=== PATIENT | female | born 1995 | race American Indian/Alaskan Native ===

== ENCOUNTER 2019-11-30 02:34 | Emergency (ER) | payer SELFPAY ==
[2019-11-30 03:19] LABS: Hematocrit 40.6 % (30.3-42.9); Hemoglobin 13.5 gm/dl (10.1-14.3); Mean Corpuscular HGB Conc 33 % (30-34); Mean Corpuscular Volume 86 fl (79-97); Platelet Count 255 K/mm3 (140-440); Red Blood Count 4.74 M/mm3 (3.65-5.03)
[2019-11-30 03:33] LABS: Bacteria,Urine 1+ /HPF (Negative); Bilirubin,Urine NEG (Negative); Blood,Urine NEG (Negative); Color,Urine Yellow (Yellow); Mucus,Urine 2+ /HPF; Protein,Urine <15 mg/dL mg/dL (Negative); Urobilinogen,Urine < 2.0 mg/dL (<2.0)
--- NOTE | 2019-11-30 04:03 | Ultrasound Report ---
US OB <= 14 weeks fetus INDICATION / CLINICAL INFORMATION: 10 week with vaginal bleeding. COMPARISON: None available. FINDINGS: Single gestational sac is demonstrated in the uterus, slightly in the lower uterine segment. Gestatio nal sac diameter measures 16.5 mm, corresponding to a gestational age of 6 weeks 4 days. However, no pole can be identified. Both ovaries are normal. No free fluid. IMPRESSION: 1. Intrauterine gestational sac, with no pole. Anembryonic is suspected. Suggest foll ow-up. Signer Name: Tom Bravo MD Signed: 11/30/2019 3:58 AM Workstation Name: [id number]
[2019-11-30 06:11] LABS: Anisocytosis 1+; Band Neutrophils # (Manual) 0.2 K/mm3; Basophils % (Manual) 0 % (0.0-1.8); Platelet Estimate Consistent w Auto; Total Cells Counted 100
--- NOTE | 2019-11-30 06:29 | Emergency Department Report ---
ED HPI - General Chief complaint: Vaginal Bleeding Stated complaint: 10 WEEKS PREGNANET, BLEEDING Time Seen by Provider: 11/30/19 06:14 Source: patient Mode of arrival: Ambulatory Limitations: No Limitations - History of Present Illness Initial comments: 24-year-old female presents with LMP 09/15 (10wk 6days gestation by dates) presents to the hospital complaining of noticing blood from vagina after using the bathroom this a.m. No recent intercourse reported. Patient does not have any continued bleeding or cramping. This is her third with history 2 abortions in the past. She has not yet initiated care and plan to call today and make an appointment. - Related Data Allergies Allergy/AdvReac Type Severity Reaction Status Date / Time No Known Allergies Allergy Unverified 11/30/19 02:40 ED Review of Systems ROS: Stated complaint: 10 WEEKS PREGNANET, BLEEDING Other details as noted in HPI Comment: All other systems reviewed and negative ED Past Medical Hx - Past Medical History Previous Medical History?: No - Surgical History Past Surgical History?: No - Social History Smoking Status: Never Smoker Substance Use Type: None ED Physical Exam - General Limitations: No Limitations - Other Other exam information: General: No acute distress Head: Atraumatic Eyes: normal appearance ENT: Moist mucous membranes Neck: Normal appearance, no midline tenderness Chest: Clear to auscultation bilaterally CV: Regular rate and rhythm Abdomen: Soft, normal bowel sounds, nontender, nondistended, no rebound or gua rding Back: Normal inspection Extremity: Normal inspection, full range of motion Neuro: Alert O x 3, no facial asymmetry, speech clear, no gross motor sensory deficit Psych: Appropriate behavior Skin: No rash ED Course Vital Signs 11/30/19 11/30/19 02:37 06:25 Temperature 98.7 F 98.5 F Pulse Rate 103 H 95 H Respiratory 14 18 Rate Blood Pressure 122/79 Blood Pressure 106/72 [Left] O2 Sat by Pulse 100 100 Oximetry ED Medical Decision Making - Lab Data Result diagrams: 11/30/19 02:50 Lab Results 11/30/19 11/30/19 11/30/19 Range/Units 02:50 02:50 02:50 WBC 6.2 (4.5-11.0) K/mm3 RBC 4.74 (3.65-5.03) M/mm3 Hgb 13.5 (10.1-14.3) gm/dl Hct 40.6 (30.3-42.9) % MCV 86 (79-97) fl MCH 29 (28-32) pg MCHC 33 (30-34) % RDW 14.0 (13.2-15.2) % Plt Count 255 (140-440) K/mm3 [place] % (Auto) Sisal Operator Add Manual Diff Complete Total Counted 100 Seg Neuts % (Manual) 60.0 (40.0-70.0) % Band Neutrophils % 3.0 % Lymphocytes % (Manual) 25.0 (13.4-35.0) % Reactive Lymphs % (Man) 0 % Monocytes % (Manual) 10.0 H (0.0-7.3) % Eosinophils % (Manual) 2.0 (0.0-4.3) % Basophils % (Manual) 0 (0.0-1.8) % Metamyelocytes % 0 % Myelocytes % 0 % Promyelocytes % 0 % Blast Cells % 0 % Nucleated RBC % Not Reportable Seg Neutrophils # Man 3.7 (1.8-7.7) K/mm3 Band Neutrophils # 0.2 K/mm3 Lymphocytes # (Manual) 1.6 (1.2-5.4) K/mm3 Abs React Lymphs (Man) 0.0 K/mm3 Monocytes # (Manual) 0.6 (0.0-0.8) K/mm3 Eosinophils # (Manual) 0.1 (0.0-0.4) K/mm3 Basophils # (Manual) 0.0 (0.0-0.1) K/mm3 Metamyelocytes # 0.0 K/mm3 Myelocytes # 0.0 K/mm3 Promyelocytes # 0.0 K/mm3 Blast Cells # 0.0 K/mm3 WBC Morphology Not Reportable Hypersegmented Neuts Not Reportable Hyposegmented Neuts Not Reportable Hypogranular Neuts Not Reportable Smudge Cells Not Reportable Toxic Granulation Not Reportable Toxic Vacuolation Not Reportable Dohle Bodies Not Reportable Pelger-Huet Anomaly Not Reportable Yoana Rods Not Reportable Platelet Estimate Consistent w auto Clumped Platelets Not Reportable Plt Clumps, EDTA Not Reportable Large Platelets Not Reportable Giant Platelets Not Reportable Platelet Satelliting Not Reportable Plt Morphology Comment Not Reportable RBC Morphology Not Reportable Dimorphic RBCs Not Reportable Polychromasia Not Reportable Hypochromasia Not Reportable Poikilocytosis Not Reportable Anisocytosis 1+ Microcytosis Not Reportable Macrocytosis Not Reportable Spherocytes Not Reportable Pappenheimer Bodies Not Reportable Sickle Cells Not Reportable Target Cells Not Reportable Tear Drop Cells Not Reportable Ovalocytes Not Reportable Helmet Cells Not Reportable [place] Bodies Not Reportable Lyons Rings Not Reportable [place]evely Cells Not Reportable Bite Cells Not Reportable Crenated Cell Not Reportable Elliptocytes Not Reportable Acanthocytes (Spur) Not Reportable Rouleaux Not Reportable Hemoglobin C Crystals Not Reportable Schistocytes Not Reportable Malaria parasites Not Reportable Brannon Bodies Not Reportable Hem Pathologist Commnt No HCG, Quant 24470 H (0-4) mIU/mL Urine Color (Yellow) Urine Turbidity (Clear) Urine pH (5.0-7.0) Ur Specific [place] (1.003-1.030) Urine Protein (Negative) mg/dL Urine Glucose (UA) (Negative) mg/dL Urine Ketones (Negative) mg/dL Urine Blood (Negative) Urine Nitrite (Negative) Urine Bilirubin (Negative) Urine Urobilinogen (<2.0) mg/dL Ur Leukocyte Esterase (Negative) Urine WBC (Auto) (0.0-6.0) /HPF Urine RBC (Auto) (0.0-6.0) /HPF U Epithel Cells (Auto) (0-13.0) /HPF Urine Bacteria (Auto) (Negative) /HPF Urine Mucus /HPF Blood Type O POSITIVE 11/30/19 Range/Units 03:07 WBC (4.5-11.0) K/mm3 RBC (3.65-5.03) M/mm3 Hgb (10.1-14.3) gm/dl Hct (30.3-42.9) % MCV (79-97) fl MCH (28-32) pg MCHC (30-34) % RDW (13.2-15.2) % Plt Count (140-440) K/mm3 [place] % (Auto) Add Manual Diff Total Counted Seg Neuts % (Manual) (40.0-70.0) % Band Neutrophils % % Lymphocytes % (Manual) (13.4-35.0) % Reactive Lymphs % (Man) % Monocytes % (Manual) (0.0-7.3) % Eosinophils % (Manual) (0.0-4.3) % Basophils % (Manual) (0.0-1.8) % Metamyelocytes % % Myelocytes % % Promyelocytes % % Blast Cells % % Nucleated RBC % Seg Neutrophils # Man (1.8-7.7) K/mm3 Band Neutrophils # K/mm3 Lymphocytes # (Manual) (1.2-5.4) K/mm3 Abs React Lymphs (Man) K/mm3 Monocytes # (Manual) (0.0-0.8) K/mm3 Eosinophils # (Manual) (0.0-0.4) K/mm3 Basophils # (Manual) (0.0-0.1) K/mm3 Metamyelocytes # K/mm3 Myelocytes # K/mm3 Promyelocytes # K/mm3 Blast Cells # K/mm3 WBC Morphology Hypersegmented Neuts Hyposegmented Neuts Hypogranular Neuts Smudge Cells Toxic Granulation Toxic Vacuolation Dohle Bodies Pelger-Huet Anomaly Yoana Rods Platelet Estimate Clumped Platelets Plt Clumps, EDTA Large Platelets Giant Platelets Platelet Satelliting Plt Morphology Comment RBC Morphology Dimorphic RBCs Polychromasia Hypochromasia Poikilocytosis Anisocytosis Microcytosis Macrocytosis Spherocytes Pappenheimer Bodies Sickle Cells Target Cells Tear Drop Cells Ovalocytes Helmet Cells Chun-Nowata Bodies Lyons Rings Matthias Cells Bite Cells Crenated Cell Elliptocytes Acanthocytes (Spur) Rouleaux Hemoglobin C Crystals Schistocytes Malaria parasites Brannon Bodies Hem Pathologist Commnt HCG, Quant (0-4) mIU/mL Urine Color Yellow (Yellow) Urine Turbidity Slightly-cloudy (Clear) Urine pH 5.0 (5.0-7.0) Ur Specific [place] 1.027 (1.003-1.030) Urine Protein <15 mg/dl (Negative) mg/dL Urine Glucose (UA) Neg (Negative) mg/dL Urine Ketones Neg (Negative) mg/dL Urine Blood Neg (Negative) Urine Nitrite Neg (Negative) Urine Bilirubin Neg (Negative) Urine Urobilinogen < 2.0 (<2.0) mg/dL Ur Leukocyte Esterase Tr (Negative) Urine WBC (Auto) 3.0 (0.0-6.0) /HPF Urine RBC (Auto) 5.0 (0.0-6.0) /HPF U Epithel Cells (Auto) 9.0 (0-13.0) /HPF Urine Bacteria (Auto) 1+ (Negative) /HPF Urine Mucus 2+ /HPF Blood Type - Radiology Data Radiology results: report reviewed US OB <= 14 weeks fetus INDICATION / CLINICAL INFORMATION: 10 week with vaginal bleeding. COMPARISON: None available. FINDINGS: Single gestational sac is demonstrated in the uterus, slightly in the lower uterine segment. Gestational sac diameter measures 16.5 mm, corresponding to a gestational age of 6 weeks 4 days. However, no pole can be identified. Both ovaries are normal. No free fluid. IMPRESSION: 1. Intrauterine gestational sac, with no pole. Anembryonic is suspected. Suggest - Medical Decision Making Possibility of abnormal given actual age or imaging does not correspond to gestational age. No anemia, heavy bleeding, pain, or ectopic noted. Patient will be encouraged to follow up with [facility] for repeat Quant and precautions to return. - Differential Diagnosis ectopic, threatened miscarriage, miscarriage Critical Care Time: No Critical care attestation.: If time is entered above; I have spent that time in minutes in the direct care of this critically ill patient, excluding procedure time. ED Disposition Clinical Impression: Threatened Disposition: DC-01 TO HOME OR SELFCARE Is pt being admited?: No Does the pt Need Aspirin: No Condition: Stable Instructions: Threatened Miscarriage (ED) Additional Instructions: Follow-up with your [facility] doctor or [facility] doctor provided within 2-3 days for repeat blood work. Take a copy of your results provided today to your doctor for reevaluation. Return if symptoms worsen as indicated by your discharge instructions. Referrals: VIVIAN HENDRICKS MD [Staff Physician] - 2-3 Days ([facility] doctor ) Time of Disposition: 06:29
[2019-11-30 06:41] VITALS: BP 114/80
== END 2019-11-30 06:41 | disposition home or self-care (01) ==
LOC: ED 02:34
DX: O20.0 Threatened abortion (principal); Z3A.10 10 weeks gestation of pregnancy
CPT/HCPCS: 36415; 76801; 81001; 84702; 85007; 85025; 86900; 86901

== ENCOUNTER 2019-12-04 14:15 | Emergency (ER) | payer BC ==
[2019-12-04] MEDS ORDERED: SODIUM CHLORIDE 0.9% 1000 ML 1,000 ML ONE (15:07)
[2019-12-04] MEDS: SODIUM CHLORIDE 0.9% 1000 ML 1,000 ML IV ONE (15:10)
[2019-12-04] MEDS: ACETAMINOPHEN 325 MG TAB PO ONE (15:24)
[2019-12-04 15:42] LABS: Basophils % (Auto) 0.4 % (0.0-1.8); Eosinophils % (Auto) 0.6 % (0.0-4.3); Hematocrit 40.3 % (30.3-42.9); Hemoglobin 13.5 gm/dl (10.1-14.3); Lymphocytes # (Auto) 1.4 K/mm3 (1.2-5.4); Lymphocytes % (Auto) 19.8 % (13.4-35.0); Mean Corpuscular HGB Conc 34 % (30-34); Mean Corpuscular Volume 85 fl (79-97); Monocytes # (Auto) 0.9 K/mm3 (0.0-0.8); Monocytes % (Auto) 12.3 % (0.0-7.3); Platelet Count 256 K/mm3 (140-440); Red Blood Count 4.75 M/mm3 (3.65-5.03); Red Cell Distribution Width 13.6 % (13.2-15.2)
--- NOTE | 2019-12-04 16:16 | Emergency Department Report ---
ED Female HPI - General Chief complaint: Vaginal Bleeding Stated complaint: POSS MISSCARRIAGE/BLEEDING Time Seen by Provider: 12/04/19 15:06 Source: patient Mode of arrival: Stretcher Limitations: No Limitations - History of Present Illness Initial comments: Patient is a 24-year-old female presents emergency room with complaints of a possible miscarriage. She states 2 hours prior to arrival she began to have heavy vaginal bleeding. She states that she passed one large tissue-like clot. She states that she has lower abdominal cramping. She denies any fever, vomiting, diarrhea, chills, vaginal discharge. Patient states that her last menstrual cycle was the middle of August. pt was evaluated in the ED on 11/30/2019 and had a OB US at that time which showed 1. Intrauterine gestational sac, with no pole. Anembryonic is suspected. Suggest follow-up. She has not seen an [facility]. she did not follow up for repeat hcg quant. She has a past medical history of asthma. She denies any allergies medications. - Related Data Allergies Allergy/AdvReac Type Severity Reaction Status Date / Time No Known Allergies Allergy Unverified 11/30/19 02:40 ED Review of Systems ROS: Stated complaint: POSS MISSCARRIAGE/BLEEDING Other details as noted in HPI Comment: All other systems reviewed and negative ED Past Medical Hx - Past Medical History Previous Medical History?: Yes Hx Asthma: Yes - Surgical History Past Surgical History?: No - Social History Smoking Status: Never Smoker ED Physical Exam - General Limitations: No Limitations General appearance: alert, in no apparent distress - Head Head exam: Present: atraumatic, normocephalic - Eye Eye exam: Present: normal appearance - ENT ENT exam: Present: mucous membranes moist - Respiratory Respiratory exam: Present: normal lung sounds bilaterally. Absent: respiratory distress, wheezes, rales, rhonchi, stridor, chest wall tenderness, accessory muscle use, decreased breath sounds, prolonged expiratory - Cardiovascular Cardiovascular Exam: Present: regular rate, normal rhythm, normal heart sounds. Absent: systolic murmur, diastolic murmur, rubs, gallop - GI/Abdominal GI/Abdominal exam: Present: soft, tenderness (suprapubic), normal bowel sounds. Absent: distended, guarding, rebound, rigid - Neurological Exam Neurological exam: Present: alert, oriented X3 - Psychiatric Psychiatric exam: Present: normal affect, normal mood - Skin Skin exam: Present: warm, dry, intact ED Course Vital Signs 12/04/19 12/04/19 12/04/19 14:50 15:24 15:35 Temperature 98.2 F Pulse Rate 71 80 Respiratory 16 18 20 Rate Blood Pressure 90/43 Blood Pressure 98/67 [Right] O2 Sat by Pulse 97 Oximetry 12/04/19 17:00 Temperature 98.1 F Pulse Rate 83 Respiratory 18 Rate Blood Pressure Blood Pressure 105/63 [Right] O2 Sat by Pulse 99 Oximetry ED Medical Decision Making - Lab Data Result diagrams: 12/04/19 15:18 Lab Results 12/04/19 12/04/19 12/04/19 Range/Units 15:18 15:18 15:18 WBC 7.2 (4.5-11.0) K/mm3 RBC 4.75 (3.65-5.03) M/mm3 Hgb 13.5 (10.1-14.3) gm/dl Hct 40.3 (30.3-42.9) % MCV 85 (79-97) fl MCH 29 (28-32) pg MCHC 34 (30-34) % RDW 13.6 (13.2-15.2) % Plt Count 256 (140-440) K/mm3 Lymph % (Auto) 19.8 (13.4-35.0) % [place] % (Auto) 12.3 H (0.0-7.3) % Eos % (Auto) 0.6 (0.0-4.3) % Baso % (Auto) 0.4 (0.0-1.8) % Lymph # 1.4 (1.2-5.4) K/mm3 [place] # 0.9 H (0.0-0.8) K/mm3 Eos # 0.0 (0.0-0.4) K/mm3 Baso # 0.0 (0.0-0.1) K/mm3 Seg Neutrophils % 66.9 (40.0-70.0) % Seg Neutrophils # 4.8 (1.8-7.7) K/mm3 HCG, Quant 5853 H (0-4) mIU/mL Blood Type O POSITIVE Vital Signs 12/04/19 12/04/19 12/04/19 14:50 15:24 15:35 Temperature 98.2 F Pulse Rate 71 80 Respiratory 16 18 20 Rate Blood Pressure 90/43 Blood Pressure 98/67 [Right] O2 Sat by Pulse 97 Oximetry 12/04/19 17:00 Temperature 98.1 F Pulse Rate 83 Respiratory 18 Rate Blood Pressure Blood Pressure 105/63 [Right] O2 Sat by Pulse 99 Oximetry - Radiology Data Radiology results: report reviewed Pelvic ultrasound. 12/04/2018. HISTORY: . Bleeding. FINDINGS: Imaging was performed by transabdominally and endovaginally. The uterus measures 9 x 4.4 x 4.5 cm. Evaluation of the endometrial cavity demonstrates no or obvious retained products. Right ovary measures 3.1 x 3.3 x 3.1 cm. Left ovary was not visualized. Negative for adnexal mass or fluid. IMPRESSION: 1. Negative for intrauterine or retained products of conception. 2. Left ovary nonvisualized. Signer Name: Benitez Pemberton MD Signed: 12/04/2019 5:29 PM Workstation Name: [id number] Transcribed By: ES Dictated By: Benitez Pemberton MD Electronically Authenticated By: Benitez Pemberton MD Signed Date/Time: 12/04/19 7121 - Medical Decision Making Patient is a 24-year-old female presents emergency room with complaints of a possible miscarriage. She states 2 hours prior to arrival she began to have heavy vaginal bleeding. She states that she passed one large tissue-like clot. She states that she has lower abdominal cramping. She denies any fever, vomiting, diarrhea, chills, vaginal discharge. Patient states that her last menstrual cycle was the middle of August. pt was evaluated in the ED on 11/30/2019 and had a OB US at that time which showed 1. Intrauterine gestational sac, with no pole. Anembryonic is suspected. Suggest follow-up. She has not seen an [facility] M[facility] OPERATOR. she did not follow up for repeat hcg quant. She has a past medical history of asthma. She denies any allergies medications. Initial vitals with mild hypotension which improved upon 1 L of IV fluids. Patient does not feel lightheaded or dizzy is not having any symptoms related to hypotension. H&H are normal. HCG Quant has decreased since her last examination. OB US: 1. Negative for intrauterine or retained products of conception. 2. Left ovary nonvisualized. Discussed all results with patient. Advised patient to increase her water intake over the next several days. Please have your hCG Quant repeated in 2 days to make sure it is decreasing. your hCG Quant today is 5853 may have this done at the [facility] or return to the emergency room. Please follow-up with an [facility] MILL OPERATOR in the next 2-3 days. Return to the emergency room for any new or worsening symptoms including but not limited to worsening abdominal pain, worsening bleeding, fever, vomiting, dizziness, lightheaded. - Differential Diagnosis spontaneous , IUP, placenta abruption, ectopic, hemorrhagic cyst Critical care attestation.: If time is entered above; I have spent that time in minutes in the direct care of this critically ill patient, excluding procedure time. ED Disposition Clinical Impression: Spontaneous Disposition: TO HOME OR SELFCARE Is pt being admited?: No Does the pt Need Aspirin: No Condition: Stable Instructions: Spontaneous Miscarriage (ED) Additional Instructions: increase your water intake over the next several days. Please have your hCG Quant repeated in 2 days to make sure it is decreasing. your hCG Quant today is 5853 may have this done at the [facility] or return to the emergency room. Please follow-up with an FINISH MILL OPERATOR in the next 2-3 days. Return to the emergency room for any new or worsening symptoms including but not limited to worsening abdominal pain, worsening bleeding, fever, vomiting, dizziness, lightheaded. Referrals: [facility] [Provider Group] - 2-3 Days [facility], [facility] [Provider Group] - 2-3 Days [facility] [Provider Group] - 2-3 Days [facility] [Outside] - 2-3 Days Time of Disposition: 17:44 Print Language: PERSIAN
--- NOTE | 2019-12-04 17:33 | Ultrasound Report ---
Pelvic ultrasound. 12/04/2018. HISTORY: . Bleeding. FINDINGS: Imaging was performed by transabdominally and endovaginally. The uterus measures 9 x 4.4 x 4.5 cm. Evaluation of the endometrial cavity demonstrates no or obvious retained products. Right ovary measures 3.1 x 3.3 x 3.1 cm. Left ovary was not visualized. Negative for adnexal mass or fluid. IMPRESSION: 1. Negative for intrauterine or retained products of conception. 2. Left ovary nonvisualized. Signer Name: Benitez Pemberton MD Signed: 12/04/2019 5:29 PM Workstation Name: [id number]
[2019-12-04 18:09] VITALS: BP 105/63
== END 2019-12-04 18:05 | disposition home or self-care (01) ==
LOC: ED 14:15
DX: O03.9 Complete or unspecified spontaneous abortion without complication (principal); J45.909 Unspecified asthma, uncomplicated; Z3A.10 10 weeks gestation of pregnancy
CPT/HCPCS: 36415; 76801; 76817; 84702; 85025; 86850; 86900; 86901; 99284; J7030